=== PATIENT | male | born 1975 | race Caucasian/White ===

== ENCOUNTER → 2019-09-09 13:30 | Outpatient (BNVA) | payer MEDICAID, SELFPAY | PROVIDERS: Family Provider Counselor Professional; PCP Counselor Professional; Visit Provider Psychiatry & Neurology Psychiatry | DX: F41.1 Generalized anxiety disorder (principal); F33.0 Major depressive disorder, recurrent, mild; F81.9 Developmental disorder of scholastic skills, unspecified | CPT/HCPCS: 99204 ==

== ENCOUNTER → 2019-10-28 09:16 | Outpatient (BNVA) | payer MEDICAID, SELFPAY | PROVIDERS: Family Provider Counselor Professional; PCP Counselor Professional; Visit Provider Psychiatry & Neurology Psychiatry | DX: F81.9 Developmental disorder of scholastic skills, unspecified (principal); F33.0 Major depressive disorder, recurrent, mild; F41.1 Generalized anxiety disorder | CPT/HCPCS: 99213 ==

== ENCOUNTER → 2019-11-19 14:38 | Outpatient (BNVA) | payer MEDICAID, SELFPAY | PROVIDERS: Family Provider Counselor Professional; PCP Counselor Professional; Visit Provider Nurse Practitioner Family | DX: N39.0 Urinary tract infection, site not specified (principal); R30.0 Dysuria | CPT/HCPCS: 81000 ==

== ENCOUNTER → 2021-01-11 13:38 | Outpatient (BNVA) | payer MEDICAID, SELFPAY | PROVIDERS: Family Provider Counselor Professional; PCP Counselor Professional; Visit Provider Specialist | DX: G43.711 Chronic migraine without aura, intractable, with status migrainosus (principal); F81.9 Developmental disorder of scholastic skills, unspecified; F41.9 Anxiety disorder, unspecified; E11.9 Type 2 diabetes mellitus without complications; Z79.4 Long term (current) use of insulin | CPT/HCPCS: 99204 ==

== ENCOUNTER → 2021-06-14 12:07 | Outpatient (BNVA) | payer MEDICAID, SELFPAY | PROVIDERS: Family Provider Counselor Professional; PCP Counselor Professional; Visit Provider Specialist | DX: G43.711 Chronic migraine without aura, intractable, with status migrainosus (principal) | CPT/HCPCS: 99213 ==

== ENCOUNTER 2021-06-20 20:00 | Outpatient (CLI) | payer MEDICAID, SELFPAY | END 2021-06-20 20:01 | disposition home or self-care (01) | LOC: SLEEP 06-21 05:43 | PROVIDERS: Family Provider Counselor Professional; PCP Counselor Professional; Visit Provider Registered Nurse | DX: Z86.69 Personal history of other diseases of the nervous system and sense organs (principal); R06.83 Snoring; R53.83 Other fatigue; G47.33 Obstructive sleep apnea (adult) (pediatric); R09.02 Hypoxemia | CPT/HCPCS: 95810 ==

== ENCOUNTER → 2021-06-28 13:56 | Outpatient (BNVA) | payer MEDICAID, SELFPAY | PROVIDERS: Family Provider Counselor Professional; PCP Counselor Professional; Visit Provider Registered Nurse | DX: Z79.899 Other long term (current) drug therapy (principal) | CPT/HCPCS: 80053; 80061; 82306; 82607; 83036; 84443; 85025 ==

== ENCOUNTER → 2021-07-12 11:16 | Outpatient (BNVA) | payer MEDICAID, SELFPAY | PROVIDERS: Family Provider Counselor Professional; PCP Counselor Professional; Referring Provider Physician Assistant; Visit Provider Internal Medicine | DX: E11.40 Type 2 diabetes mellitus with diabetic neuropathy, unspecified (principal); Z79.4 Long term (current) use of insulin | CPT/HCPCS: 99204 ==

== ENCOUNTER 2021-08-02 20:00 | Outpatient (CLI) | payer MEDICAID, SELFPAY | END 2021-08-02 20:01 | disposition home or self-care (01) | LOC: SLEEP 08-03 08:26 | PROVIDERS: Family Provider Counselor Professional; PCP Counselor Professional; Visit Provider Registered Nurse | DX: G47.33 Obstructive sleep apnea (adult) (pediatric) (principal) | CPT/HCPCS: 95811 ==

== ENCOUNTER → 2021-09-18 07:40 | Outpatient (BNVA) | payer MEDICAID, SELFPAY | PROVIDERS: Family Provider Counselor Professional; PCP Counselor Professional; Visit Provider Podiatrist Foot & Ankle Surgery | DX: E11.42 Type 2 diabetes mellitus with diabetic polyneuropathy (principal); L60.3 Nail dystrophy; M21.621 Bunionette of right foot; M21.622 Bunionette of left foot; B35.3 Tinea pedis; M20.41 Other hammer toe(s) (acquired), right foot; M20.42 Other hammer toe(s) (acquired), left foot; G62.9 Polyneuropathy, unspecified | CPT/HCPCS: 11721; 99204 ==

== ENCOUNTER → 2021-10-11 12:28 | Outpatient (BNVA) | payer MEDICAID, SELFPAY | PROVIDERS: Family Provider Counselor Professional; PCP Counselor Professional; Visit Provider Internal Medicine | DX: Z79.4 Long term (current) use of insulin (principal); E11.9 Type 2 diabetes mellitus without complications; E78.2 Mixed hyperlipidemia; G62.9 Polyneuropathy, unspecified | CPT/HCPCS: 99214 ==

== ENCOUNTER → 2021-12-17 12:54 | Outpatient (BNVA) | payer MEDICAID, SELFPAY | PROVIDERS: Family Provider Counselor Professional; PCP Physician Assistant; Visit Provider Specialist | DX: G43.809 Other migraine, not intractable, without status migrainosus (principal) | CPT/HCPCS: 99212; 99213 ==

== ENCOUNTER → 2021-12-18 08:52 | Outpatient (BNVA) | payer MEDICAID, SELFPAY | PROVIDERS: Family Provider Counselor Professional; PCP Physician Assistant; Visit Provider Podiatrist Foot & Ankle Surgery | DX: E11.8 Type 2 diabetes mellitus with unspecified complications (principal); E11.42 Type 2 diabetes mellitus with diabetic polyneuropathy; L60.3 Nail dystrophy; M21.621 Bunionette of right foot; M21.622 Bunionette of left foot; B35.3 Tinea pedis; M20.41 Other hammer toe(s) (acquired), right foot; M20.42 Other hammer toe(s) (acquired), left foot; G62.9 Polyneuropathy, unspecified; Z79.4 Long term (current) use of insulin | CPT/HCPCS: 11721 ==

== ENCOUNTER → 2022-04-04 10:18 | Outpatient (BNVA) | payer MEDICAID, SELFPAY | PROVIDERS: Family Provider Counselor Professional; PCP Physician Assistant; Visit Provider Internal Medicine | DX: E11.42 Type 2 diabetes mellitus with diabetic polyneuropathy (principal); E78.2 Mixed hyperlipidemia; Z79.4 Long term (current) use of insulin | CPT/HCPCS: 99214 ==

== ENCOUNTER → 2022-05-28 07:55 | Outpatient (BNVA) | payer MEDICAID, SELFPAY | PROVIDERS: Family Provider Counselor Professional; PCP Physician Assistant; Visit Provider Podiatrist Foot & Ankle Surgery | DX: E11.42 Type 2 diabetes mellitus with diabetic polyneuropathy (principal); L60.3 Nail dystrophy; M21.621 Bunionette of right foot; M21.622 Bunionette of left foot; B35.3 Tinea pedis; M20.41 Other hammer toe(s) (acquired), right foot; M20.42 Other hammer toe(s) (acquired), left foot; G62.9 Polyneuropathy, unspecified; Z79.4 Long term (current) use of insulin | CPT/HCPCS: 11721 ==

== ENCOUNTER → 2022-07-03 12:53 | Outpatient (BNVA) | payer MEDICAID, SELFPAY | PROVIDERS: Family Provider Counselor Professional; PCP Physician Assistant; Visit Provider Registered Nurse | DX: Z79.899 Other long term (current) drug therapy (principal); E11.9 Type 2 diabetes mellitus without complications; E78.2 Mixed hyperlipidemia | CPT/HCPCS: 80053; 80061; 83036; 85025 ==

== ENCOUNTER 2022-09-19 16:48 | Emergency (ER) | payer MEDICAID, SELFPAY ==
[2022-09-19 16:50] VITALS: BP 105/62; PULSE 93; RESP 16; TEMP 37.2; O2SAT 92; BMI 40.0
[2022-09-19 20:20] VITALS: BP 96/66; PULSE 95; RESP 16; TEMP 37.5; O2SAT 95
[2022-09-19 20:21] VITALS: BP 100/63; BP 96/66; PULSE 96; PULSE 99
--- NOTE | 2022-09-19 20:23 | W.ED.WEAKNES ---
HPI - Weakness General: Chief complaint: Weakness Stated complaint: doesnt feel himself Time Seen by Provider: 09/19/22 20:23 History of Present Illness: 47-year-old male patient comes in today with general complaints of weakness. Patient has a history of diabetes mellitus. Patient reports no fever. Patient denies any nausea or vomiting. Patient reports symptoms been going on for several weeks now. Associated symptoms: Denies chest pain, nausea or vomiting Review of Systems General: Reports: 10 or more systems reviewed and unremarkable except in HPI and below Const: Reports: fatigue and malaise Card: Denies: chest pain Resp: Denies: dyspnea GI: Denies: nausea, vomiting, diarrhea or constipation : Denies: difficulty urinating PFS ED PFSH: Medical History History of obstructive sleep apnea Obstructive sleep apnea Psychiatric care Psychiatric care Family History Father CAD (coronary artery disease) Social History Smoking and tobacco status: never smoked Second hand smoke exposure: No Smoking risk assessment/counseling performed?: No Alcohol intake: current Alcohol intake frequency: holidays/special occasions only Substance/Drug Use: never Physical Exam Const: COMMON NORMALS: alert HENMT: COMMON NORMALS: normocephalic HEAD & SCALP: normocephalic Neck/C-Spine: COMMON NORMALS: full ROM Resp: COMMON NORMALS: normal respiratory effort and clear to auscultation bilaterally AUSCULTATION: clear to auscultation bilaterally Cardio: COMMON NORMALS: regular rate and regular rhythm RATE: regular rate RHYTHM: regular rhythm GI: COMMON NORMALS: non-tender Extremity: COMMON NORMALS: no pedal edema Neuro: SENSORIUM/ORIENTATION: Yes alert Skin: COMMON NORMALS: turgor normal GENERAL SKIN EXAM: turgor normal Course Vital Signs: Vital signs: Vital Signs Temperature 99.5 F 09/19/22 20:20 Pulse Rate 96 09/19/22 20:21 Respiratory Rate 16 09/19/22 20:20 Blood Pressure 96/66 09/19/22 20:21 Pulse Oximetry 95 09/19/22 20:20 Oxygen Delivery Me thod Room Air 09/19/22 16:50 MDM - Weakness Medical Decision Making 47-year-old male patient comes in today with complaints of weakness for the last several weeks. Patient does have a history of diabetes mellitus. On exam lungs are clear to auscultation. Heart rates regular. Abdomen is obese and not tender. No swelling is noted in the extremities. Differential diagnosis includes but not limited to malingering, electrolyte imbalance, hyperglycemia. Laboratory values noted a white blood cell count of 11,000. CMP had a creatinine 1.7 and a BUN of 22 with a GFR 43. Alkaline phosphatase was 132. Sodium was 136, potassium was 4.0. Urine was concentrated with hyaline casts and oxalate crystals. Believe the patient probably has probable dehydration versus YAZMIN. Patient was infused with 2 L of IV fluid instructed to follow-up with primary care in 1 week for recheck of labs. Encourage fluids and staying out of the heat, and avoiding naproxen, ibuprofen, or other NSAIDs. Patient reported understanding and agreed to plan. Lab Data 09/19/22 20:42 09/19/22 20:42 Laboratory Results WBC 11.1 10^3/uL (4.0-10.0) H 09/19/22 20:42 RBC 4.54 10^6/uL (4.1-5.3) 09/19/22 20:42 Hgb 12.0 g/dL (11.7-16.6) 09/19/22 20:42 Hct 38.6 % (42.0-52.0) L 09/19/22 20:42 MCV 85.0 fl (80-94) 09/19/22 20:42 MCH 26.4 pg (28.0-34.0) L 09/19/22 20:42 MCHC 31.1 g/dL (30.0-36.0) 09/19/22 20:42 RDW 14.9 % (12.1-15.1) 09/19/22 20:42 Plt Count 279 10^3/cmm (130-400) 09/19/22 20:42 MPV 9.3 fL (7.4-10.4) 09/19/22 20:42 Neut % (Auto) 50.2 % 09/19/22 20:42 Lymph % (Auto) 42.8 % 09/19/22 20:42 [place] % (Auto) 5.2 % 09/19/22 20:42 Eos % (Auto) 0.9 % 09/19/22 20:42 Baso % (Auto) 0.7 % 09/19/22 20:42 Neut # (Auto) 5.59 10^3/uL (1.8-7.7) 09/19/22 20:42 Lymph # (Auto) 4.8 10^3/uL (0.8-4.8) 09/19/22 20:42 [place] # (Auto) 0.6 10^3/uL (0.2-0.9) 09/19/22 20:42 Eos # (Auto) 0.1 10^3/uL (0.0-0.8) 09/19/22 20:42 Baso # (Auto) 0.1 10^3/uL (0.0-0.1) 09/19/22 20:42 Nucleated RBC % (auto) 0 % 09/19/22 20:42 Nucleated RBCs # 0.0 /100WBC 09/19/22 20:42 Sodium 136 mmol/L (136-145) 09/19/22 20:42 Potassium 4.0 mmol/L (3.5-5.1) 09/19/22 20:42 Chloride 99 mmol/L (98-107) 09/19/22 20:42 Carbon Dioxide 25 mmol/L (22-29) 09/19/22 20:42 Anion Gap 16.0 (5-19) 09/19/22 20:42 BUN 22 mg/dL (6-20) H 09/19/22 20:42 Creatinine 1.7 mg/dL (0.7-1.2) H 09/19/22 20:42 GFR Calculation 43.4 mL/min (90-130) L 09/19/22 20:42 Glucose 96 mg/dL (65-115) 09/19/22 20:42 POC Glucose 96 mg/dL (70-110) 09/19/22 20:26 Calculated Osmolality 285 mOsm/kg (285-295) 09/19/22 20:42 Calcium 9.0 mg/dL (8.5-10.5) 09/19/22 20:42 Total Bilirubin 0.3 mg/dL (0.15-1.2) 09/19/22 20:42 AST 20 U/L (0-40) 09/19/22 20:42 ALT 22 U/L (0-41) 09/19/22 20:42 Alkaline Phosphatase 132 U/L (40-130) H 09/19/22 20:42 Total Protein 7.8 g/dL (6.6-8.7) 09/19/22 20:42 Albumin 4.2 g/dL (3.5-5.2) 09/19/22 20:42 Globulin 3.6 g/dL (1.3-4.6) 09/19/22 20:42 Urine Color Yellow (Yellow) 09/19/22 21:45 Urine Appearance Sl hazy (CLEAR) A 09/19/22 21:45 Urine pH 5 (5-7) 09/19/22 21:45 Ur Specific [place] 1.025 (1.005-1.030) 09/19/22 21:45 Urine Protein Trace (Negative) 09/19/22 21:45 Urine Glucose (UA) Norm (Normal) 09/19/22 21:45 Urine Ketones 1+ (Negative) H 09/19/22 21:45 Urine Blood Neg (Negative) 09/19/22 21:45 Urine Nitrate Negative (Negative) 09/19/22 21:45 Urine Bilirubin 1+ (Negative) H 09/19/22 21:45 Urine Urobilinogen Neg mg/dL (Negative) 09/19/22 21:45 Ur Leukocyte Esterase Trace (Negative) H 09/19/22 21:45 Urine RBC 0-4 /hpf (0-2) H 09/19/22 21:45 Urine WBC 5-10 /hpf (0-5) H 09/19/22 21:45 Ur Squamous Epith Cells None /hpf (0-5) 09/19/22 21:45 Ur Transition Epith Cell 5-10 /hpf 09/19/22 21:45 Calcium Oxalate Crystal 15-25 /hpf H 09/19/22 21:45 Amorphous Sediment 1+ /hpf 09/19/22 21:45 Urine Bacteria 1+ /hpf (NONE) H 09/19/22 21:45 Hyaline Casts 0-4 /lpf H 09/19/22 21:45 Urine Mucus 3+ /hpf 09/19/22 21:45 Discharge Plan Discharge Patient Disposition: Home Clinical Impression: Dehydration Condition: Stable Prescriptions: No Action All Day Allergy (cetirizine) 10 mg capsule 10 mg PO DAILY PRN [id number] [Fioricet] 50-300-40 mg capsule 1 cap PO Q8H PRN Nurtec ODT 75 mg tablet,disintegrating 75 mg PO .dissolve and swallow PRN (Reason: migraine headache) Rx Instructions: Max 1 dose/24 hours tizanidine [Zanaflex] 4 mg capsule 4 mg PO .q 6-8 h PRN Rx Instructions: Not to exceed 3 doses in 24 hours acetaminophen [Tylenol Extra Strength] 500 mg tablet 1,000 mg PO DAILY PRN (Reason: migraine headache) diphenhydramine HCl [Benadryl] 25 mg capsule 25 mg PO Q6H PRN clotrimazole-betamethasone 1-0.05 % cream 1 applic topical BID 28 Days Qty: 45 2RF topiramate 100 mg tablet See Rx Instructions .ROUTE .COMPLEX Qty: 90 6RF Dose Instruction: TAKE ONE TABLET BY MOUTH DAILY Rx Instructions: TAKE ONE TABLET BY MOUTH DAILY ([facility] Dexcom G6 Tire Stripper Misc See Rx Instructions .Route Qty: 1 0RF Rx Instructions: Check BS 4-6 times a day. (DME) Dexcom G6 Transmitter Device See Rx Instructions .Route Qty: 1 3RF Rx Instructions: Change every 90 days. ([facility]) OneTouch Verio test strips Strip See Rx Instructions .Route Qty: 100 3RF Rx Instructions: Check BS 1 time a day. metoprolol tartrate 50 mg tablet 50 mg PO BID Qty: 180 3RF Rx Instructions: Take one tablet by mouth twice a day. ([facility]) Dexcom G6 Transmitter Device See Rx Instructions .Route Qty: 1 3RF Rx Instructions: As directed Lantus Solostar U-100 Insulin 100 unit/mL (3 mL) insulin pen 84 unit SUBCUT QAM Qty: 90 3RF Rx Instructions: bedtime Rexulti 3 mg tablet See Rx Instructions .ROUTE .COMPLEX Qty: 30 2RF Dose Instruction: TAKE ONE TABLET BY MOUTH DAILY Rx Instructions: TAKE ONE TABLET BY MOUTH DAILY amitriptyline 100 mg tablet See Rx Instructions .ROUTE .COMPLEX Qty: 30 2RF Dose Instruction: TAKE ONE TABLET BY MOUTH DAILY AT BEDTIME Rx Instructions: TAKE ONE TABLET BY MOUTH DAILY AT BEDTIME gabapentin 600 mg tablet 600 mg PO TID 30 Days Qty: 90 2RF (DME) Dexcom G6 Sensor Device See Rx Instructions .Route Qty: 9 0RF Rx Instructions: Change every 10 days. insulin aspart U-100 [Novolog FlexPen U-100 Insulin] 100 unit/mL (3 mL) insulin pen See Rx Instructions .ROUTE .COMPLEX Qty: 15 0RF Dose Instruction: 17 UNITS SUB Q THREE TIMES DAILY FOR 30 DAYS: Rx Instructions: 17 UNITS SUB Q THREE TIMES DAILY FOR 30 DAYS: Discharge Orders: Discharge ED (Routine); Ordered 09/19/22 Ordered By: René Mcnally Referrals: Radha Hammond PA-C [Primary Care Provider] - Discharge Diet: Usual diet Discharge Activity: Increase activity as tolerated Patient Instructions: Dehydration (ED) Activity Restrictions/Additional Instructions: Stay out of the heat. Drink plenty of water and fluids. Avoid medications containing ibuprofen or naproxen. For pain you can use acetaminophen or Tylenol. Follow-up with primary care in 1 week for recheck of labs. Return to ED for new concerns or worsening symptoms. Coding Level of Care Code ED [employer] Supervisor for Devorah Fallon
[2022-09-19 20:28] LABS: Glucose Point of Care 96 mg/dL (70-110)
[2022-09-19 20:49] LABS: Basophils # 0.1 10^3/uL (0.0-0.1); Basophils % 0.7 %; Eosinophils # 0.1 10^3/uL (0.0-0.8); Eosinophils % 0.9 %; Hematocrit 38.6 % (42.0-52.0); Lymphocytes # 4.8 10^3/uL (0.8-4.8); Lymphocytes % 42.8 %; Mean Corpuscular HGB Conc 31.1 g/dL (30.0-36.0); Mean Corpuscular Hemoglobin 26.4 pg (28.0-34.0); Mean Platelet Volume 9.3 fL (7.4-10.4); Monocytes # 0.6 10^3/uL (0.2-0.9); Monocytes % 5.2 %; Neutrophils # 5.59 10^3/uL (1.8-7.7); Neutrophils % 50.2 %; Nucleated Red Blood Cells % 0 %; Platelet Count 279 10^3/cmm (130-400); Red Blood Count 4.54 10^6/uL (4.1-5.3); Red Cell Distribution Width 14.9 % (12.1-15.1); White Blood Count 11.1 10^3/uL (4.0-10.0)
[2022-09-19 21:07] LABS: Alanine Aminotransferase 22 U/L (0-41); Albumin Level 4.2 g/dL (3.5-5.2); Alkaline Phosphatase 132 U/L (40-130); Aspartate Amino Transferase 20 U/L (0-40); Blood Urea Nitrogen 22 mg/dL (6-20); Carbon Dioxide 25 mmol/L (22-29); Chloride 99 mmol/L (98-107); Globulin 3.6 g/dL (1.3-4.6); Glomerular Filtration Rate 43.4 mL/min (90-130); Glucose 96 mg/dL (65-115); Osmolality Calculated 285 mOsm/kg (285-295); Sodium 136 mmol/L (136-145); Total Bilirubin 0.3 mg/dL (0.15-1.2); Total Protein 7.8 g/dL (6.6-8.7)
[2022-09-19] MEDS: sodium chloride 0.9% 1,000 ML 999 ML IV ×2 (21:33→22:36)
[2022-09-19 22:28] LABS: Add Urine Microscopic? YES; Bilirubin Urine 1+ (Negative); Blood Urine Neg (Negative); Glucose Urine UA Norm (Normal); Ketones Urine 1+ (Negative); Leukocyte Esterase Urine Trace (Negative); Nitrate Urine Negative (Negative); Protein Urine Trace (Negative); Specific Gravity, Urine 1.025 (1.005-1.030); Urine Appearance SL Hazy (CLEAR); Urine Color Yellow (Yellow); Urobilinogen Urine Neg (Negative); pH Urine 5 (5-7)
[2022-09-19 22:29] LABS: Amorphous Sediment Urine 1+ /hpf; Bacteria Urine 1+ /hpf; Calcium Oxalate Crystals Urine 15-25 /hpf; Hyaline Casts Urine 0-4 /lpf; Mucus Urine 3+ /hpf; RBC Urine 0-4 /hpf (0-2)
[2022-09-19 22:30] LABS: Add Urine Culture? No
[2022-09-19 23:23] VITALS: BP 121/77; PULSE 97; RESP 16; O2SAT 94
[2022-09-19 23:24] VITALS: BP 121/77; PULSE 97; RESP 16; TEMP 37.5; O2SAT 94
== END 2022-09-19 23:25 | disposition home or self-care (01) ==
PROVIDERS: Emergency Provider Nurse Practitioner Family; PCP Physician Assistant
DX: E86.0 Dehydration (principal); Z79.4 Long term (current) use of insulin
CPT/HCPCS: 36415; 36416; 80053; 81001; 82962; 85025; 96360; 96361; 99284; J7030

== ENCOUNTER → 2022-12-24 08:24 | Outpatient (BNVA) | payer MEDICAID, SELFPAY | PROVIDERS: PCP Physician Assistant; Visit Provider Internal Medicine | DX: E78.2 Mixed hyperlipidemia (principal); E11.69 Type 2 diabetes mellitus with other specified complication; E11.42 Type 2 diabetes mellitus with diabetic polyneuropathy; Z79.4 Long term (current) use of insulin | CPT/HCPCS: 99214 ==

== ENCOUNTER → 2023-01-02 13:09 | Outpatient (BNVA) | payer MEDICAID, SELFPAY | PROVIDERS: PCP Physician Assistant; Visit Provider Registered Nurse | DX: Z79.899 Other long term (current) drug therapy (principal) | CPT/HCPCS: 80053; 80061; 83036 ==

== ENCOUNTER 2023-03-05 10:29 | Emergency (ER) | payer MEDICAID, SELFPAY ==
[2023-01-24 16:01] VITALS: BP 122/81; BMI 39.2
[2023-03-05 10:36] VITALS: BP 118/81; PULSE 103; RESP 18; TEMP 36.5; O2SAT 96; BMI 40.3
[2023-03-05 10:52] LABS: Basophils % 0.4 %; Eosinophils % 0.3 %; Hematocrit 36.8 % (37-53); Lymphocytes # 3.3 10^3/uL (0.8-4.8); Lymphocytes % 32.3 %; Mean Corpuscular HGB Conc 32.6 g/dL (30-55); Mean Corpuscular Volume 82.9 fl (82-101); Mean Platelet Volume 9.2 fL (7.4-10.4); Monocytes # 0.5 10^3/uL (0.2-0.9); Monocytes % 5.3 %; Neutrophils # 6.21 10^3/uL (1.8-7.7); Neutrophils % 61.4 %; Nucleated Red Blood Cells % 0 %; Platelet Count 262 10^3/cmm (157-399); Red Blood Count 4.44 10^6/uL (3.85-5.65); Red Cell Distribution Width 14.1 % (12.1-15.1); White Blood Count 10.12 10^3/uL (3.29-11.43)
--- NOTE | 2023-03-05 10:53 | CT_ITS ---
WS: [id number] CT ABDOMEN PELVIS TECHNIQUE: Noncontrast CT of the abdomen and pelvis with coronal and sagittal reformatted images. CLINICAL INFORMATION: L flank pain COMPARISON: None. DLP: 1083.[address] scans at [facility] use at least one of these dose optimization techniques: automated e xposure control; mA and/or kV adjustment per patient size (includes targeted exams where dose is matc hed to clinical indication); or iterative reconstruction. FINDINGS: Obstructing calculus in the distal third LEFT pelvic ureter measuring approximately 4.3 mm. Associate d mild LEFT ureterectasis with inflammatory stranding. No significant hydronephrosis. Ureter distal t o the calculus is patent. No hydronephrosis in the RIGHT kidney. Tiny nonobstructing RIGHT calyceal tip calculus. Mild hepatomegaly. Splenic granulomas. Normal GE junction. Noncontrast pancreas is normal. Normal bharath iber abdominal aorta. Mild aortic calcification. Tortuous sigmoid colon. Transverse colon constipatio n. Prior appendectomy. Mild bladder wall thickening can be seen with chronic cystitis. No free fluid in the abdomen or pelvis. Prior postoperative changes T12-L2. Subsegmental atelectasis in the lung bases. Subsegmental atelectasis in the lingula and RIGHT middle lobe. Noncalcified nodule RIGHT lower lobe measuring 10 mm. IMPRESSION: 1. 4.3 mm obstructing calculus LEFT distal third ureter with mild LEFT ureterectasis with inflammato ry stranding. No significant hydronephrosis. 2. 10 mm noncalcified nodule RIGHT lower lobe. Recommend 6-month follow-up chest CT. 3. Prior postoperative changes pedicle screw fixation T12-L2. Notified Fior Mcdonald MD at 03/05/2023 11:43 AM.
--- NOTE | 2023-03-05 11:03 | ED_ITS ---
HPI - Back Pain/Injury 2 General: Chief Complaint: Back Pain/Injury Stated Complaint: left side abd pain Time Seen by Provider: 03/05/23 10:54 Source: patient Mode of arrival: ambulatory Limitations: no limitations History of Present Illness: 48-year-old male states that he was told on Friday he had kidney stones he states that he been having some back pain but his pain in his left flank got much worse overnight he states the pain is a 9 out of 10 had some nausea denies any vomiting denies dysuria denies fevers. Denies any worsening proving factors. Associated symptoms: Deny abdominal pain, chills, dysuria, fever(s), nausea or vomiting Review of Systems 2 Const: Denies: fever(s), chills, body aches or change in appetite ENMT: Denies: throat pain or dental pain Card: Denies: chest pain Resp: Denies: dyspnea GI: Denies: abdominal pain, nausea, vomiting or diarrhea : Reports: flank pain; Denies: dysuria Musc: Denies: neck pain or back pain Skin/Breast: Denies: rash Neuro: Denies: headache(s) PFSH ED 2 PFSH: Medical History Depression History of obstructive sleep apnea Psychiatric care Psychiatric care Obstructive sleep apnea Family History Father CAD (coronary artery disease) Social History Smoking and tobacco/nicotine status: never used tobacco/nicotine Second hand smoke exposure: No Alcohol intake: current Alcohol intake frequency: holidays/special occasions only Substance/Drug Use: never Physical Exam 2 Const: COMMON NORMALS: no acute distress, patient oriented x3 and healthy appearing HENMT: COMMON NORMALS: normocephalic and atraumatic HEAD & SCALP: n ormocephalic and atraumatic Eye: COMMON NORMALS: Equal, round and reactive pupils present and EOMs intact bilaterally PUPIL: Yes Equal, round and reactive pupils present Neck/C-Spine: COMMON NORMALS: full ROM and supple Chest: COMMONS NORMALS: normal inspection of the chest and normal palpation of entire chest wall Resp: COMMON NORMALS: normal respiratory effort, No retractions, No use of accessory muscles and clear to auscultation bilaterally AUSCULTATION: clear to auscultation bilaterally Cardio: COMMON NORMALS: regular rate, regular rhythm and No murmurs present (Cardio) RATE: regular rate RHYTHM: regular rhythm GI: COMMON NORMALS: Normal to inspection, nondistended, normoactive bowel sounds present, Soft to palpation, non-tender and no masses PALPATION: Yes Soft to palpation Extremity: COMMON NORMALS: normal to inspection and full ROM Neuro: COMMON NORMALS: patient oriented x3, moves all extremities and no focal motor deficits Psych: COMMON NORMALS: mental status grossly normal, Normal thought process present and cooperative THOUGHT PROCESS: Normal thought process present Skin: COMMON NORMALS: no rashes or lesions noted and no wounds GENERAL SKIN EXAM: no rashes or lesions noted Course 2 Vital Signs: Vital signs: Vital Signs Temperature 97.7 F 03/05/23 10:36 Pulse Rate 103 H 03/05/23 10:36 Respiratory Rate 19 H 03/05/23 11:34 Blood Pressure 118/81 03/05/23 10:36 Pulse Oximetry 96 03/05/23 10:36 Oxygen Delivery Me thod Room Air 03/05/23 10:36 MDM - Back Pain/Injury Medical Decision Making Patient presents here with flank pain he does have a 4 mm kidney stone no signs of infection stable for discharge we will prescribe him pain meds he is to follow-up with urology return if worsening. Medical Records I reviewed the patient's medical records. Labs I reviewed the patient's lab results. 03/05/23 10:48 03/05/23 10:48 Laboratory Results WBC 10.12 10^3/uL (3.29-11.43) 03/05/23 10:48 RBC 4.44 10^6/uL (3.85-5.65) 03/05/23 10:48 Hgb 12.00 g/dL (11.27-16.99) 03/05/23 10:48 Hct 36.8 % (37-53) L 03/05/23 10:48 MCV 82.9 fl (82-101) 03/05/23 10:48 MCH 27.0 pg (27-33) 03/05/23 10:48 MCHC 32.6 g/dL (30-55) 03/05/23 10:48 RDW 14.1 % (12.1-15.1) 03/05/23 10:48 Plt Count 262 10^3/cmm (157-399) 03/05/23 10:48 MPV 9.2 fL (7.4-10.4) 03/05/23 10:48 Neut % (Auto) 61.4 % 03/05/23 10:48 Lymph % (Auto) 32.3 % 03/05/23 10:48 [place] % (Auto) 5.3 % 03/05/23 10:48 Eos % (Auto) 0.3 % 03/05/23 10:48 Baso % (Auto) 0.4 % 03/05/23 10:48 Neut # (Auto) 6.21 10^3/uL (1.8-7.7) 03/05/23 10:48 Lymph # (Auto) 3.3 10^3/uL (0.8-4.8) 03/05/23 10:48 [place] # (Auto) 0.5 10^3/uL (0.2-0.9) 03/05/23 10:48 Eos # (Auto) 0.0 10^3/uL (0.0-0.8) 03/05/23 10:48 Baso # (Auto) 0.0 10^3/uL (0.0-0.1) 03/05/23 10:48 Nucleated RBC % (auto) 0 % 03/05/23 10:48 Nucleated RBCs # 0.0 /100WBC 03/05/23 10:48 Sodium 137 mmol/L (136-145) 03/05/23 10:48 Potassium 3.9 mmol/L (3.5-5.1) 03/05/23 10:48 Chloride 101 mmol/L (98-107) 03/05/23 10:48 Carbon Dioxide 27 mmol/L (22-29) 03/05/23 10:48 Anion Gap 12.9 (5-19) 03/05/23 10:48 BUN 12 mg/dL (6-20) 03/05/23 10:48 Creatinine 1.0 mg/dL (0.7-1.2) 03/05/23 10:48 GFR Calculation 79.8 mL/min (90-130) L 03/05/23 10:48 Glucose 151 mg/dL (65-115) H 03/05/23 10:48 Calculated Osmolality 287 mOsm/kg (285-295) 03/05/23 10:48 Calcium 8.9 mg/dL (8.5-10.5) 03/05/23 10:48 Total Bilirubin 0.3 mg/dL (0.15-1.2) 03/05/23 10:48 AST 18 U/L (0-40) 03/05/23 10:48 ALT 24 U/L (0-41) 03/05/23 10:48 Alkaline Phosphatase 112 U/L (40-130) 03/05/23 10:48 Total Protein 6.9 g/dL (6.6-8.7) 03/05/23 10:48 Albumin 3.8 g/dL (3.5-5.2) 03/05/23 10:48 Globulin 3.1 g/dL (1.3-4.6) 03/05/23 10:48 Lipase 25 U/L (13-60) 03/05/23 10:48 Urine Color Yellow (Yellow) 03/05/23 10:59 Urine Appearance Clear (CLEAR) 03/05/23 10:59 Urine pH 6 (5-7) 03/05/23 10:59 Ur Specific [place] 1.010 (1.005-1.030) 03/05/23 10:59 Urine Protein Neg (Negative) 03/05/23 10:59 Urine Glucose (UA) Norm (Normal) 03/05/23 10:59 Urine Ketones 1+ (Negative) H 03/05/23 10:59 Urine Blood 3+ (Negative) H 03/05/23 10:59 Urine Nitrate Negative (Negative) 03/05/23 10:59 Urine Bilirubin Neg (Negative) 03/05/23 10:59 Urine Urobilinogen Norm mg/dL (Negative) 03/05/23 10:59 Ur Leukocyte Esterase Negative (Negative) 03/05/23 10:59 Urine RBC 40-50 /hpf (0-2) H 03/05/23 10:59 Urine WBC 0-4 /hpf (0-5) H 03/05/23 10:59 Ur Squamous Epith Cells 0-4 /hpf (0-5) H 03/05/23 10:59 Amorphous Sediment Not Reportable 03/05/23 10:59 Urine Bacteria Trace /hpf (NONE) 03/05/23 10:59 Urine Mucus None /hpf 03/05/23 10:59 All radiology interpretation(s) finalized by discharge Discharge Plan Discharge Patient Disposition: Home Clinical Impression: Kidney stone Condition: Stable Prescriptions: New hydrocodone-acetaminophen 5-325 mg tablet 1 tab PO Q6H PRN (Reason: pain) Qty: 14 0RF ondansetron 4 mg tablet,disintegrating 4 mg PO Q6H PRN (Reason: nausea and vomiting) Qty: 14 0RF No Action All Day Allergy (cetirizine) 10 mg capsule 10 mg PO DAILY PRN (Reason: allergies) [id number] [Fioricet] 50-300-40 mg capsule 1 cap PO Q8H PRN (Reason: Headache) Nurtec ODT 75 mg tablet,disintegrating 75 mg PO .dissolve and swallow PRN (Reason: migraine headache) Rx Instructions: Max 1 dose/24 hours tizanidine [Zanaflex] 4 mg capsule See Rx Instructions .ROUTE .COMPLEX PRN (Reason: Nausea And Vomiting) Rx Instructions: 4 mg orally every 6 to 8 hours as needed ;Not to exceed 3 doses in 24 hours acetaminophen [Tylenol Extra Strength] 500 mg tablet 1,000 mg PO DAILY PRN (Reason: migraine headache) diphenhydramine HCl [Benadryl] 25 mg capsule 25 mg PO Q6H PRN (Reason: allergies) (DME) Dexcom G6 Transmitter Device See Rx Instructions .Route Qty: 1 3RF Rx Instructions: As directed (DME) Dexcom G6 Sensor Device See Rx Instructions .Route Qty: 9 0RF Rx Instructions: Change every 10 days. (DME) OneTouch Verio test strips Strip See Rx Instructions .Route Qty: 100 3RF Rx Instructions: Check BS 1 time a day. gabapentin 600 mg tablet 600 mg PO TID 30 Days Qty: 90 2RF insulin aspart U-100 [Novolog FlexPen U-100 Insulin] 100 unit/mL (3 mL) insulin pen 17 unit SUBCUT TID 30 Days Qty: 18 0RF metoprolol tartrate 25 mg tablet 25 mg PO BID clotrimazole-betamethasone 1-0.05 % cream 1 applic topical BID PRN (Reason: Rash) topiramate 100 mg tablet 100 mg PO DAILY amitriptyline 100 mg tablet 100 mg PO BEDTIME Lantus Solostar U-100 Insulin 100 unit/mL (3 mL) insulin pen 80 unit SUBCUT QPM Rx Instructions: bedtime Rexulti 3 mg tablet 3 mg PO DAILY Discharge Orders: Discharge ED (Routine); Ordered 03/05/23 Ordered By: Fior Mcdonald Referrals: Radha Hammond PA-C [Primary Care Provider] - 1-3 days Discharge Diet: Advance as tolerated Discharge Activity: Resume usual activity Patient Instructions: Kidney Stones (ED), Opioid Safety Coding Level of Care Code ED Talk Show Host for Devorah Fallon
[2023-03-05 11:12] LABS: Alanine Aminotransferase 24 U/L (0-41); Albumin Level 3.8 g/dL (3.5-5.2); Alkaline Phosphatase 112 U/L (40-130); Anion Gap 12.9 (5-19); Aspartate Amino Transferase 18 U/L (0-40); Blood Urea Nitrogen 12 mg/dL (6-20); Calcium 8.9 mg/dL (8.5-10.5); Carbon Dioxide 27 mmol/L (22-29); Chloride 101 mmol/L (98-107); Globulin 3.1 g/dL (1.3-4.6); Glomerular Filtration Rate 79.8 mL/min (90-130); Glucose 151 mg/dL (65-115); Lipase 25 U/L (13-60); Osmolality Calculated 287 mOsm/kg (285-295); Potassium 3.9 mmol/L (3.5-5.1); Sodium 137 mmol/L (136-145); Total Bilirubin 0.3 mg/dL (0.15-1.2); Total Protein 6.9 g/dL (6.6-8.7)
[2023-03-05 11:34] VITALS: RESP 19
[2023-03-05] MEDS: HYDROmorphone 1 mg/mL INJ 1 mL IVP (11:34)
[2023-03-05] MEDS: ondansetron 2 mg/ML SDV 2 mL 4 MG IVP (11:34)
--- NOTE | 2023-03-05 11:35 | PC.NURSE ---
PT MEDS PUSHED BY JESSICA LIU
[2023-03-05 11:43] LABS: Add Urine Microscopic? YES; Bilirubin Urine Neg (Negative); Blood Urine 3+ (Negative); Glucose Urine UA Norm (Normal); Ketones Urine 1+ (Negative); Leukocyte Esterase Urine Negative (Negative); Nitrate Urine Negative (Negative); Protein Urine Neg (Negative); Urine Appearance Clear (CLEAR); Urine Color Yellow (Yellow); Urobilinogen Urine Norm (Negative); pH Urine 6 (5-7)
[2023-03-05 11:47] LABS: Add Urine Culture? No; Bacteria Urine TRACE /hpf; RBC Urine 40-50 /hpf (0-2); Squamous Epithelial Cell Urine 0-4 /hpf (0-5); WBC Urine 0-4 /hpf (0-5)
--- NOTE | 2023-03-11 08:58 | DCPLANNER ---
Left message for patient to return call us back- need preferred urology-
== END 2023-03-05 12:02 | disposition home or self-care (01) ==
PROVIDERS: Emergency Provider Emergency Medicine; PCP Physician Assistant
DX: N20.0 Calculus of kidney (principal); Z79.4 Long term (current) use of insulin
CPT/HCPCS: 36415; 74176; 80053; 81001; 83690; 85025; 96374; 96375; 99285; J1170; J2405

== ENCOUNTER 2023-03-12 10:28 | Emergency (ER) | payer MEDICAID, SELFPAY ==
[2023-01-24 16:01] VITALS: BP 122/81; BMI 39.2
[2023-03-12 10:36] VITALS: BP 178/122; PULSE 82; RESP 16; TEMP 37.1; O2SAT 95; BMI 40.3
[2023-03-12 10:50] LABS: Basophils # 0.1 10^3/uL (0.0-0.1); Basophils % 0.5 %; Eosinophils # 0.1 10^3/uL (0.0-0.8); Eosinophils % 0.5 %; Hematocrit 38.9 % (37-53); Lymphocytes # 2.3 10^3/uL (0.8-4.8); Lymphocytes % 19.4 %; Mean Corpuscular HGB Conc 31.9 g/dL (30-55); Mean Corpuscular Hemoglobin 26.7 pg (27-33); Mean Corpuscular Volume 83.8 fl (82-101); Mean Platelet Volume 8.9 fL (7.4-10.4); Monocytes # 0.6 10^3/uL (0.2-0.9); Monocytes % 4.9 %; Neutrophils # 8.61 10^3/uL (1.8-7.7); Neutrophils % 74.4 %; Nucleated Red Blood Cells % 0 %; Platelet Count 280 10^3/cmm (157-399); Red Blood Count 4.64 10^6/uL (3.85-5.65); Red Cell Distribution Width 14.6 % (12.1-15.1); White Blood Count 11.58 10^3/uL (3.29-11.43)
--- NOTE | 2023-03-12 10:52 | ED_ITS ---
HPI - Abdominal Pain 2 General: Chief Complaint: Abdominal Pain Stated Complaint: abd pain Time Seen by Provider: 03/12/23 10:47 Source: patient Mode of arrival: ambulatory Limitations: no limitations History of Present Illness: 48-year-old male states been having left flank pain for a week he is seen here 1 week ago diagnosed with a kidney stone is 3 mm and distally states he has not passed it he is about to run out of his pain medicine he rates his pain a 7 out of 10 has had some nausea denies any vomiting denies any fevers. Associated Symptoms: Denies chills, diarrhea, dysuria, fever(s), nausea and vomiting Review of Systems 2 Const: Denies: fever(s), chills, body aches or change in appetite ENMT: Denies: throat pain or dental pain Card: Denies: chest pain Resp: Denies: dyspnea GI: Reports: abdominal pain; Denies: nausea, vomiting or diarrhea : Reports: flank pain; Denies: dysuria Musc: Denies: neck pain or back pain Skin/Breast: Denies: rash Neuro: Denies: headache(s) PFSH ED 2 PFSH: Medical History Depression History of obstructive sleep apnea Psychiatric care Psychiatric care Obstructive sleep apnea Family History Father CAD (coronary artery disease) Social History Smoking and tobacco/nicotine status: never used tobacco/nicotine Second hand smoke exposure: No Alcohol intake: current Alcohol intake frequency: holidays/special occasions only Substance/Drug Use: never Physical Exam 2 Const: COMMON NORMALS: no acute distress, patient oriented x3 and healthy appearing HENMT: COMMON NORMALS: normocephalic and atraumatic HEAD & SCALP: n ormocephalic and atraumatic Eye: COMMON NORMALS: conjunctivae normal CONJUNCTIVA: Yes conjunctivae normal Neck/C-Spine: COMMON NORMALS: full ROM and supple Chest: COMMONS NORMALS: normal inspection of the chest Resp: COMMON NORMALS: normal respiratory effort Cardio: COMMON NORMALS: regular rate, regular rhythm and No murmurs present (Cardio) RATE: regular rate RHYTHM: regular rhythm GI: COMMON NORMALS: Normal to inspection, nondistended, normoactive bowel sounds present, Soft to palpation, non-tender and no masses PALPATION: Yes Soft to palpation Extremity: COMMON NORMALS: normal to inspection and full ROM Neuro: COMMON NORMALS: patient oriented x3, moves all extremities and no focal motor deficits Psych: COMMON NORMALS: mental status grossly normal, Normal thought process present and cooperative THOUGHT PROCESS: Normal thought process present Skin: COMMON NORMALS: no rashes or lesions noted and no wounds GENERAL SKIN EXAM: no rashes or lesions noted Course 2 Vital Signs: Vital signs: Vital Signs Temperature 98.8 F 03/12/23 10:36 Pulse Rate 90 03/12/23 11:13 Respiratory Rate 16 03/12/23 11:13 Blood Pressure 178/122 03/12/23 10:36 Pulse Oximetry 94 03/12/23 11:31 Oxygen Delivery Me thod Room Air 03/12/23 11:31 MDM - Abdominal Pain Medical Decision Making Patient presents here with flank pain likely from his kidney stone imaging here is normal did not repeat a CT as he has had a CT in the last week his stone was 3 mm she should be able to pass he does not have a UTI we will place him on Flomax and pain meds he is follow-up with urology return if worsening. Medical Records I reviewed the patient's medical records. Lab Data I reviewed the patient's lab results. 03/12/23 10:42 03/12/23 10:42 Labs/Radiology: Radiology Impressions Chest X-Ray 03/12/23 11:25 IMPRESSION: No acute findings. KUB X-Ray 03/12/23 11:25 IMPRESSION: Nonspecific bowel gas pattern. Possible ileus. Laboratory Results WBC 11.58 10^3/uL (3.29-11.43) H 03/12/23 10:42 RBC 4.64 10^6/uL (3.85-5.65) 03/12/23 10:42 Hgb 12.40 g/dL (11.27-16.99) 03/12/23 10:42 Hct 38.9 % (37-53) 03/12/23 10:42 MCV 83.8 fl (82-101) 03/12/23 10:42 MCH 26.7 pg (27-33) L 03/12/23 10:42 MCHC 31.9 g/dL (30-55) 03/12/23 10:42 RDW 14.6 % (12.1-15.1) 03/12/23 10:42 Plt Count 280 10^3/cmm (157-399) 03/12/23 10:42 MPV 8.9 fL (7.4-10.4) 03/12/23 10:42 Neut % (Auto) 74.4 % 03/12/23 10:42 Lymph % (Auto) 19.4 % 03/12/23 10:42 [place] % (Auto) 4.9 % 03/12/23 10:42 Eos % (Auto) 0.5 % 03/12/23 10:42 Baso % (Auto) 0.5 % 03/12/23 10:42 Neut # (Auto) 8.61 10^3/uL (1.8-7.7) H 03/12/23 10:42 Lymph # (Auto) 2.3 10^3/uL (0.8-4.8) 03/12/23 10:42 [place] # (Auto) 0.6 10^3/uL (0.2-0.9) 03/12/23 10:42 Eos # (Auto) 0.1 10^3/uL (0.0-0.8) 03/12/23 10:42 Baso # (Auto) 0.1 10^3/uL (0.0-0.1) 03/12/23 10:42 Nucleated RBC % (auto) 0 % 03/12/23 10:42 Nucleated RBCs # 0.0 /100WBC 03/12/23 10:42 Sodium 137 mmol/L (136-145) 03/12/23 10:42 Potassium 4.1 mmol/L (3.5-5.1) 03/12/23 10:42 Chloride 97 mmol/L (98-107) L 03/12/23 10:42 Carbon Dioxide 30 mmol/L (22-29) H 03/12/23 10:42 Anion Gap 14.1 (5-19) 03/12/23 10:42 BUN 12 mg/dL (6-20) 03/12/23 10:42 Creatinine 1.0 mg/dL (0.7-1.2) 03/12/23 10:42 GFR Calculation 79.8 mL/min (90-130) L 03/12/23 10:42 Glucose 174 mg/dL (65-115) H 03/12/23 10:42 Calculated Osmolality 288 mOsm/kg (285-295) 03/12/23 10:42 Calcium 9.5 mg/dL (8.5-10.5) 03/12/23 10:42 Total Bilirubin 0.5 mg/dL (0.15-1.2) 03/12/23 10:42 AST 19 U/L (0-40) 03/12/23 10:42 ALT 25 U/L (0-41) 03/12/23 10:42 Alkaline Phosphatase 120 U/L (40-130) 03/12/23 10:42 Total Protein 7.8 g/dL (6.6-8.7) 03/12/23 10:42 Albumin 4.5 g/dL (3.5-5.2) 03/12/23 10:42 Globulin 3.3 g/dL (1.3-4.6) 03/12/23 10:42 Lipase 22 U/L (13-60) 03/12/23 10:42 Urine Color Yellow (Yellow) 03/12/23 11:30 Urine Appearance Clear (CLEAR) 03/12/23 11:30 Urine pH 5 (5-7) 03/12/23 11:30 Ur Specific [place] 1.020 (1.005-1.030) 03/12/23 11:30 Urine Protein 1+ (Negative) H 03/12/23 11:30 Urine Glucose (UA) Norm (Normal) 03/12/23 11:30 Urine Ketones Negative (Negative) 03/12/23 11:30 Urine Blood 3+ (Negative) H 03/12/23 11:30 Urine Nitrate Negative (Negative) 03/12/23 11:30 Urine Bilirubin Neg (Negative) 03/12/23 11:30 Urine Urobilinogen Norm mg/dL (Negative) 03/12/23 11:30 Ur Leukocyte Esterase Negative (Negative) 03/12/23 11:30 Urine RBC 25-40 /hpf (0-2) H 03/12/23 11:30 Urine WBC 0-4 /hpf (0-5) H 03/12/23 11:30 Ur Squamous Epith Cells 0-4 /hpf (0-5) H 03/12/23 11:30 Amorphous Sediment Not Reportable 03/12/23 11:30 Urine Bacteria Trace /hpf (NONE) 03/12/23 11:30 All radiology interpretation(s) finalized by discharge Discharge Plan Discharge Patient Disposition: Home Clinical Impression: Kidney stone Condition: Stable Prescriptions: New hydrocodone-acetaminophen 5-325 mg tablet 1 tab PO Q6H PRN (Reason: pain) Qty: 10 0RF Flomax 0.4 mg capsule 0.4 mg PO DAILY Qty: 4 0RF No Action All Day Allergy (cetirizine) 10 mg capsule 10 mg PO DAILY PRN (Reason: allergies) [id number] [Fioricet] 50-300-40 mg capsule 1 cap PO Q8H PRN (Reason: Headache) Nurtec ODT 75 mg tablet,disintegrating 75 mg PO .dissolve and swallow PRN (Reason: migraine headache) Rx Instructions: Max 1 dose/24 hours acetaminophen [Tylenol Extra Strength] 500 mg tablet 1,000 mg PO DAILY PRN (Reason: Pain) diphenhydramine HCl [Benadryl] 25 mg capsule 25 mg PO Q6H PRN (Reason: allergies) (DME) Dexcom G6 Transmitter Device See Rx Instructions .Route Qty: 1 3RF Rx Instructions: As directed (DME) Dexcom G6 Sensor Device See Rx Instructions .Route Qty: 9 0RF Rx Instructions: Change every 10 days. (DME) OneTouch Verio test strips Strip See Rx Instructions .Route Qty: 100 3RF Rx Instructions: Check BS 1 time a day. gabapentin 600 mg tablet 600 mg PO TID 30 Days Qty: 90 2RF insulin aspart U-100 [Novolog FlexPen U-100 Insulin] 100 unit/mL (3 mL) insulin pen 17 unit SUBCUT TID 30 Days Qty: 18 0RF metoprolol tartrate 25 mg tablet 25 mg PO BID clotrimazole-betamethasone 1-0.05 % cream 1 applic topical BID PRN (Reason: Rash) topiramate 100 mg tablet 100 mg PO DAILY amitriptyline 100 mg tablet 100 mg PO BEDTIME insulin glargine [Lantus Solostar U-100 Insulin] 100 unit/mL (3 mL) insulin pen 80 unit SUBCUT QPM Rexulti 3 mg tablet 3 mg PO DAILY hydrocodone-acetaminophen 5-325 mg tablet 1 tab PO Q6H PRN (Reason: pain) Qty: 14 0RF ondansetron 4 mg tablet,disintegrating 4 mg PO Q6H PRN (Reason: nausea and vomiting) Qty: 14 0RF Discharge Orders: Discharge ED (Routine); Ordered 03/12/23 Ordered By: Fior Mcdonald Referrals: Radha Hammond PA-C [Primary Care Provider] - 1-3 days Discharge Diet: Advance as tolerated Discharge Activity: Resume usual activity Patient Instructions: Kidney Stones (ED), Opioid Safety Coding Level of Care Code ED [employer] for Devorah Fallon
[2023-03-12 11:07] LABS: Alanine Aminotransferase 25 U/L (0-41); Albumin Level 4.5 g/dL (3.5-5.2); Alkaline Phosphatase 120 U/L (40-130); Anion Gap 14.1 (5-19); Aspartate Amino Transferase 19 U/L (0-40); Blood Urea Nitrogen 12 mg/dL (6-20); Calcium 9.5 mg/dL (8.5-10.5); Carbon Dioxide 30 mmol/L (22-29); Chloride 97 mmol/L (98-107); Globulin 3.3 g/dL (1.3-4.6); Glomerular Filtration Rate 79.8 mL/min (90-130); Glucose 174 mg/dL (65-115); Lipase 22 U/L (13-60); Osmolality Calculated 288 mOsm/kg (285-295); Potassium 4.1 mmol/L (3.5-5.1); Sodium 137 mmol/L (136-145); Total Bilirubin 0.5 mg/dL (0.15-1.2); Total Protein 7.8 g/dL (6.6-8.7)
[2023-03-12] MEDS: ketorolac 30 mg/mL INJ IVP (11:12)
[2023-03-12] MEDS: sodium chloride 0.9% 1,000 ML 999 ML IV (11:12)
[2023-03-12] MEDS: ondansetron 2 mg/ML SDV 2 mL 4 MG IVP (11:12)
[2023-03-12 11:13] VITALS: PULSE 90; RESP 16; O2SAT 88
--- NOTE | 2023-03-12 11:25 | XRR_ITS ---
PROCEDURE INFORMATION: Exam: XR Chest Exam date and time: 03/12/2023 11:30 AM Age: 48 years old Clinical indication: Other: Abd pain; Prior surgery; Surgery date: 6+ months; Surgery type: L spine TECHNIQUE: Imaging protocol: Radiologic exam of the chest. Views: 1 view. COMPARISON: CT kidney stone [id number] 03/05/2023 11:19 AM FINDINGS: Lungs: Mild coarse reticular opacity in the lower lungs is consistent with subsegmental atelectasis as seen on prior abdomen CT. There is no consolidation. Pulmonary nodules visible on prior abdomen CT are not apparent on this exam. Pleural spaces: There is no pleural effusion or pneumothorax. Heart/Mediastinum: Cardiomediastinal contours are unremarkable. Bones/joints: Posterolateral upper lumbar fusion is partially imaged. Bones in the chest are unremarkable. XR/XR chest 1V portable [id number] IMPRESSION: No acute findings.
--- NOTE | 2023-03-12 11:25 | XRR_ITS ---
PROCEDURE INFORMATION: Exam: XR Abdomen Exam date and time: 03/12/2023 11:33 AM Age: 48 years old Clinical indication: Abdominal pain; Prior surgery; Surgery date: 6+ months; Surgery type: L spine; Additional info: Abd pain TECHNIQUE: Imaging protocol: Radiologic exam of the abdomen. Views: Frontal supine view of the abdomen. 1 View. COMPARISON: CT kidney stone [id number] 03/05/2023 11:19 AM FINDINGS: Gastrointestinal tract: There is mild gas distention of the stomach. The colon is diffusely stool-filled and mildly distended. There are mildly gas distended small bowel loops visible in the right upper and left lower quadrant. Intraperitoneal space: The pelvis is unremarkable. No gross free air. Bones/joints: There is posterolateral thoracolumbar fusion. There is moderate lower lumbar degenerative disease. XR/XR KUB [id number] IMPRESSION: Nonspecific bowel gas pattern. Possible ileus.
[2023-03-12 11:31] VITALS: O2SAT 94
[2023-03-12 11:48] LABS: Add Urine Culture? Yes; Add Urine Microscopic? YES; Bacteria Urine TRACE /hpf; Bilirubin Urine Neg (Negative); Blood Urine 3+ (Negative); Glucose Urine UA Norm (Normal); Ketones Urine Negative (Negative); Leukocyte Esterase Urine Negative (Negative); Nitrate Urine Negative (Negative); Protein Urine 1+ (Negative); RBC Urine 25-40 /hpf (0-2); Squamous Epithelial Cell Urine 0-4 /hpf (0-5); Urine Appearance Clear (CLEAR); Urine Color Yellow (Yellow); Urobilinogen Urine Norm (Negative); WBC Urine 0-4 /hpf (0-5); pH Urine 5 (5-7)
[2023-03-12 13:00] VITALS: PULSE 87; RESP 20; O2SAT 94
--- NOTE | 2023-03-18 10:13 | DCPLANNER ---
Referral was sent to [facility] on 03/18/2023 at 1013am. Fax to: [phone] and phone number: [phone]. Clinic to contact patient
== END 2023-03-12 13:05 | disposition home or self-care (01) ==
PROVIDERS: Emergency Provider Emergency Medicine; PCP Physician Assistant
DX: N20.0 Calculus of kidney (principal); Z79.4 Long term (current) use of insulin
CPT/HCPCS: 36415; 71045; 74018; 80053; 81001; 83690; 85025; 87086; 96361; 96374; 96375; 99284; J1885; J2405; J7030

== ENCOUNTER → 2023-03-24 08:50 | Outpatient (BNVA) | payer MEDICAID, SELFPAY ==
[2023-01-24 16:01] VITALS: BP 122/81; BMI 39.2
== END ==
PROVIDERS: PCP Physician Assistant; Visit Provider Internal Medicine
DX: E78.2 Mixed hyperlipidemia (principal); E11.42 Type 2 diabetes mellitus with diabetic polyneuropathy; Z79.4 Long term (current) use of insulin
CPT/HCPCS: 99214

== ENCOUNTER → 2023-06-24 10:58 | Outpatient (BNVA) | payer MEDICAID, SELFPAY ==
[2023-01-24 16:01] VITALS: BP 122/81; BMI 39.2
== END ==
PROVIDERS: PCP Physician Assistant; Visit Provider Internal Medicine
DX: E78.2 Mixed hyperlipidemia (principal); E11.42 Type 2 diabetes mellitus with diabetic polyneuropathy; Z79.4 Long term (current) use of insulin
CPT/HCPCS: 99214

== ENCOUNTER → 2024-01-01 08:50 | Outpatient (BNVA) | payer MEDICAID, SELFPAY ==
[2024-01-01 10:33] VITALS: BP 122/81; BMI 39.2
== END ==
PROVIDERS: PCP Physician Assistant; Visit Provider Internal Medicine
DX: E78.2 Mixed hyperlipidemia (principal); E11.42 Type 2 diabetes mellitus with diabetic polyneuropathy; G47.33 Obstructive sleep apnea (adult) (pediatric); Z79.84 Long term (current) use of oral hypoglycemic drugs
CPT/HCPCS: 99214

== ENCOUNTER → 2024-04-26 12:31 | Outpatient (BNVA) | payer MEDICAID, SELFPAY ==
[2024-01-01 10:33] VITALS: BP 122/81; BMI 39.2
== END ==
PROVIDERS: PCP Physician Assistant; Visit Provider Psychiatry & Neurology Psychiatry
DX: Z79.899 Other long term (current) drug therapy (principal)
CPT/HCPCS: 80061; 83036

== ENCOUNTER → 2024-12-23 16:50 | Outpatient (BNVA) | payer OTHER, SELFPAY ==
[2024-05-03 16:54] VITALS: BP 155/97; BMI 39.7
== END ==
PROVIDERS: PCP Physician Assistant; Visit Provider Psychiatry & Neurology Psychiatry
DX: Z79.899 Other long term (current) drug therapy (principal)
CPT/HCPCS: 80061; 83036